=== PATIENT | female | born 1990 | race American Indian/Alaskan Native ===

== ENCOUNTER 2017-06-26 19:52 | Emergency (ER) | payer OTHER ==
--- NOTE | 2017-06-26 20:21 | C.PDOC ---
History Of Present Illness 27 year old female, 5 weeks who is G 3 and P 1, presents to the ED with abdominal cramping and vaginal spotting that started a few days ago. Patient reports she went to see her OBGYN who sent her her for an evaluation. Patient denies nauseam vomit, diarrhea, vaginal bleeding, dysuria, hematuria. Time Seen by Provider: 06/26/17 20:20 Chief Complaint (Nursing): Female Genitourinary History Per: Patient History/Exam Limitations: no limitations Onset/Duration Of Symptoms: Days Current Symptoms Are (Timing): Still Present Quality Of Discomfort: Cramping Associated Symptoms: Urinary Symptoms Alleviating Factors: None Recent travel outside of the [place]: No Additional History Per: Patient Abnormal Vaginal Bleeding: No : 3 Para: 1 Past Medical History Reviewed: Historical Data, Nursing Documentation, Vital Signs Vital Signs: Last Vital Signs Temp 98.8 F 06/26/17 20:13 Pulse 60 06/26/17 20:13 Resp 18 06/26/17 20:13 BP 116/69 06/26/17 20:13 Pulse Ox 99 06/26/17 23:34 - Medical History PMH: No Chronic Diseases Surgical History: No Surg Hx Family History: States: Unknown Family Hx - Social History Hx Alcohol Use: No Hx Substance Use: No Review Of Systems Constitutional: Negative for: Fever, Chills Cardiovascular: Negative for: Chest Pain, Palpitations Respiratory: Negative for: Cough, Shortness of Breath Gastrointestinal: Positive for: Abdominal Pain. Negative for: Nausea, Vomiting Genitourinary: Positive for: Other (vaginal spotting) Musculoskeletal: Negative for: Back Pain Skin: Negative for: Rash Neurological: Negative for: Weakness, Numbness, Headache Physical Exam - Physical Exam Appears: Non-toxic, No Acute Distress Skin: Warm, Dry Head: Normacephalic Eye(s): bilateral: Normal Inspection Nose: No Discharge, No Deformity Oral Mucosa: Moist Neck: Normal ROM, Supple Chest: Symmetrical Cardiovascular: Rhythm Regular, No Murmur Respiratory: No Decreased Breath Sounds, No Rales, No Rhonchi, No Wheezing Gastrointestinal/Abdominal: Soft, No Tenderness, No Guarding, No Rebound, Other (tympanic to percussion, mild suprapubic discomfort) Extremity: Normal ROM, No Pedal Edema, No Calf Tenderness, No Deformity, No Swelling Neurological/Psych: Oriented x3 Gait: Steady ED Course And Treatment - Laboratory Results Result Diagrams: 06/26/17 21:00 06/26/17 21:00 O2 Sat by Pulse Oximetry: 99 (On RA) Pulse Ox Interpretation: Normal Progress Note: Plan: -Labs. -Iv fluids. -UA. -Transvaginal US Reevaluation Time: 23:38 Reassessment Condition: Improved Medical Decision Making Medical Decision Making: Time: 2326 --US transvaginal FINDINGS: Gestation: No intrauterine is visualized. Uterus/cervix: Uterus measures 8.2 x 4.5 x 5.7. Endometrium measures 1.8 CM in thickness. Nabothian cysts. Cervix measures 4.2 CM. No myometrial mass. Ovaries: Right ovary measures 2.5 x 1.3 x 3.2 CM. Left ovary measures 3.2 x 1.7 x 2.3 CM. 1.5 CM left ovarian cyst. No mass. Free fluid: No free fluid. IMPRESSION: 1. No intrauterine is seen 2. No complex adnexal masses. 3. No free fluid. 4. Clinical followup, serial beta-hCG levels, and repeat imaging, if appropriate. Disposition Counseled Patient/Family Regarding: Studies Performed, Diagnosis, Need For Followup - Disposition Referrals: Roe Hernandez MD [Medical Doctor] - Disposition: HOME/ ROUTINE Disposition Time: 20:21 Condition: FAIR Additional Instructions: Please follow up with your cone trucker for repeat BHCG level and possible US Instructions: (ED) Forms: [facility] (Bulgarian) - Clinical Impression Clinical Impression: Chemical - Scribe Statement The provider has reviewed the documentation as recorded by the Scribe Emmanuel Baptiste All medical record entries made by the Scribe were at my direction and personally dictated by me. I have reviewed the chart and agree that the record accurately reflects my personal performance of the history, physical exam, medical decision making, and the department course for this patient. I have also personally directed, reviewed, and agree with the discharge instructions and disposition.
[2017-06-26] MEDS ORDERED: Sodium Chloride 0.9% 1,000 ML IV ONE (20:26)
[2017-06-26 21:06] LABS: BASO # 0.1 K/uL (0.0-0.2); BASO % 0.8 % (0.0-2.0); EOS # 0.1 K/uL (0.0-0.7); EOS % 0.9 % (0.0-4.0); HEMOGLOBIN 11.8 g/dL (11.0-16.0); LYMPH # 2.1 K/uL (1.0-4.3); LYMPH % 27.5 % (20.0-40.0); MEAN CORPUSCULAR HEMOGLOBIN 28.4 pg (27.0-31.0); MEAN CORPUSCULAR HGB CONC 33.4 g/dL (33.0-37.0); MEAN PLATELET VOLUME 9.7 fL (7.2-11.7); MONO # 0.5 K/uL (0.0-0.8); MONO % 6.8 % (0.0-10.0); NRBC % 0.1 % (0.0-2.0); RBC 4.16 Mil/uL (3.80-5.20); RED CELL DISTRIBUTION WIDTH 14.1 % (11.5-14.5); WHITE BLOOD COUNT 7.7 K/uL (4.8-10.8)
[2017-06-26 21:14] LABS: HCG,QUALITATIVE URINE POSITIVE (NEGATIVE)
[2017-06-26 21:15] LABS: SQUAMOUS EPITHIAL 9 /hpf (0-5); URINE BACTERIA OCC (<OCC); URINE BILIRUBIN NEGATIVE (NEGATIVE); URINE BLOOD 3+ (NEGATIVE); URINE CLARITY Clear (Clear); URINE COLOR Yellow (YELLOW); URINE GLUCOSE (UA) NORMAL (Normal); URINE LEUKOCYTE ESTERASE NEG Leu/uL (Negative); URINE NITRATE NEGATIVE (NEGATIVE); URINE PROTEIN NEGATIVE (NEGATIVE)
[2017-06-26 21:20] LABS: ALB/GLOB RATIO 1.2 (1.0-2.1); ALBUMIN 3.7 g/dL (3.5-5.0); CALCIUM 8.4 mg/dl (8.6-10.4); GFR AFRICAN-AMERICAN > 60; GFR NON-AFRICAN AMERICAN > 60
[2017-06-26 21:21] LABS: ALT/SGPT 18 U/L (9-52); AST/SGOT 31 U/L (14-36); BLOOD UREA NITROGEN 14 mg/dL (7-17)
--- NOTE | 2017-06-26 23:27 | US ---
EXAM: US First Trimester, Transabdominal US , Transvaginal CLINICAL HISTORY: 27 years old, female; Signs and symptoms; Lmp or gestational age (in weeks): 12-13-17; Other: Vag bleed; Additional info: 5 weeks pregnat, vag bleed TECHNIQUE: Real-time transabdominal and transvaginal obstetrical ultrasound of the maternal pelvis and a first trimester with image documentation. Transvaginal imaging was used for better evaluation of the fetus and adnexa. COMPARISON: No relevant prior studies available. FINDINGS: Gestation: No intrauterine is visualized. Uterus/cervix: Uterus measures 8.2 x 4.5 x 5.7. Endometrium measures 1.8 CM in thickness. Nabothian cysts. Cervix measures 4.2 CM. No myometrial mass. Ovaries: Right ovary measures 2.5 x 1.3 x 3.2 CM. Left ovary measures 3.2 x 1.7 x 2.3 CM. 1.5 CM left ovarian cyst. No mass. Free fluid: No free fluid. IMPRESSION: 1. No intrauterine is seen. 2. No complex adnexal masses. 3. No free fluid. 4. Clinical followup, serial beta-hCG levels, and repeat imaging, if appropriate.
[2017-06-26 23:58] VITALS: BP 104/66; PULSE 64; RESP 16; TEMP 98.4; O2SAT 100
== END 2017-06-27 | disposition home or self-care (01) ==
LOC: C.ER 19:52
DX: O02.81 Inappropriate change in quantitative human chorionic gonadotropin (hCG) in early pregnancy (principal)
CPT/HCPCS: 76830; 76856; 80053; 81001; 84702; 84703; 85025; 86850; 86860; 86870; 86900; 96360; 99284; J7040

== ENCOUNTER 2017-06-30 14:06 | Emergency (ER) | payer OTHER ==
[2017-06-30 14:46] VITALS: BP 109/68; PULSE 85; RESP 20; TEMP 98.6; O2SAT 98
[2017-06-30 14:49] VITALS: BMI 23.5
--- NOTE | 2017-06-30 15:29 | C.PDOC ---
History Of Present Illness 27 y/o female [id number] is currently 5 weeks and states she had vaginal bleeding and abdominal cramping the past week. Pt reports that she was seen in the hospital on 06/26 with similar symptoms and was discharged with threatened . Pt currently states bleeding has lessened and she is here for evaluation. Currently denies any physical complaints. Time Seen by Provider: 06/30/17 15:07 Chief Complaint (Nursing): Female Genitourinary History Per: Patient History/Exam Limitations: no limitations Onset/Duration Of Symptoms: Days (7) Current Symptoms Are (Timing): Still Present Quality Of Discomfort: Unable To Describe Associated Symptoms: denies: Fever, Chills, Nausea, Vomiting, Diarrhea, Chest Pain, Constipation, Urinary Symptoms Alleviating Factors: None Recent travel outside of the [place]: No Abnormal Vaginal Bleeding: No Past Medical History Reviewed: Historical Data, Nursing Documentation, Vital Signs Vital Signs: Last Vital Signs Temp 98.6 F 06/30/17 14:46 Pulse 85 06/30/17 14:46 Resp 20 06/30/17 14:46 BP 109/68 06/30/17 14:46 Pulse Ox 98 06/30/17 15:51 - Medical History PMH: No Chronic Diseases Surgical History: No Surg Hx Family History: States: Unknown Family Hx - Social History Hx Alcohol Use: No Hx Substance Use: No Review Of Systems Constitutional: Negative for: Fever, Chills Respiratory: Negative for: Shortness of Breath Gastrointestinal: Negative for: Nausea, Vomiting, Abdominal Pain, Diarrhea Genitourinary: Negative for: Dysuria, Hematuria, Vaginal Discharge, Vaginal Bleeding, Pelvic Pain Skin: Negative for: Rash Neurological: Negative for: Weakness, Numbness Physical Exam - Physical Exam Appears: Well, Non-toxic, No Acute Distress, Other (Awake and alert) Skin: Normal Color, Warm, Dry Head: Atraumatic, Normacephalic Eye(s): bilateral: Normal Inspection, PERRL, EOMI Oral Mucosa: Moist Neck: Normal ROM, Supple Chest: Symmetrical, No Tenderness Cardiovascular: Rhythm Regular Respiratory: Normal Breath Sounds, No Decreased Breath Sounds, No Rales, No Rhonchi, No Wheezing Gastrointestinal/Abdominal: Soft, No Tenderness, No Distention, No Guarding, No Rebound Back: No CVA Tenderness, No Vertebral Tenderness Pelvic: No Vaginal Bleeding, No Vaginal Discharge, No Cervical Motion Tenderness Extremity: Normal ROM, No Tenderness, No Swelling Extremity: Bilateral: Normal Color And Temperature, Normal ROM Pulses: Left Radial: Normal, Right Radial: Normal Neurological/Psych: Oriented x3, Normal Speech, Normal Cognition, Other (no focal deficits) Gait: Steady ED Course And Treatment O2 Sat by Pulse Oximetry: 98 (RA) Pulse Ox Interpretation: Normal Medical Decision Making Medical Decision Making: Old records reviewed. Patient was seen 06/26 for threatened . Had Ultrasound performed: IMPRESSION: 1. No intrauterine is seen. 2. No complex adnexal masses. 3. No free fluid. 4. Clinical followup, serial beta-hCG levels, and repeat imaging, if appropriate. Addendum Dictated By: Alaina Carver MD Addendum Dictated Date Time:06/27/17 Addendum Signed by:Alaina Carver MD Addendum signed Date Time: 06/27/17124 Addendum Transcribed By: [facility] Addendum Transcribed Date Time: 06/27/17 Patient had outpatient blood work done this morning and beta was 7; this is indicative of spontaneous . Patient stable for discharge. Disposition - Disposition Referrals: [facility] [Outside] [place] [facility] [Outside] Disposition: HOME/ ROUTINE Disposition Time: 15:24 Condition: GOOD Additional Instructions: Follow up with the OBGYN within 1-2 days without fail. Return if worsened. Instructions: Spontaneous Miscarriage (ED) Forms: [facility] (Luxembourgish) - Clinical Impression Clinical Impression: Spontaneous - PA / CAR DROPPER / Resident Statement MD/DO has reviewed & agrees with the documentation as recorded. - Scribe Statement The provider has reviewed the documentation as recorded by the Scribe Oj Rivero All medical record entries made by the Scribe were at my direction and personally dictated by me. I have reviewed the chart and agree that the record accurately reflects my personal performance of the history, physical exam, medical decision making, and the department course for this patient. I have also personally directed, reviewed, and agree with the discharge instructions and disposition.
== END 2017-06-30 15:41 | disposition home or self-care (01) ==
LOC: C.ER 14:06
DX: O03.9 Complete or unspecified spontaneous abortion without complication (principal); Z3A.01 Less than 8 weeks gestation of pregnancy

== ENCOUNTER 2017-12-09 17:55 | Emergency (ER) | payer OTHER ==
[2017-12-09 18:19] VITALS: BMI 24.4
[2017-12-09 18:23] VITALS: O2SAT 100
[2017-12-09] MEDS ORDERED: Sodium Chloride 0.9% 1,000 ML IV ONE (19:00)
[2017-12-09 19:15] LABS: BASO % 0.7 % (0.0-2.0); EOS # 0.1 K/uL (0.0-0.7); EOS % 0.9 % (0.0-4.0); HEMOGLOBIN 11.9 g/dL (11.0-16.0); LYMPH # 1.8 K/uL (1.0-4.3); LYMPH % 25.6 % (20.0-40.0); MEAN CELL VOLUME 85.5 fL (81.0-99.0); MEAN CORPUSCULAR HEMOGLOBIN 27.9 pg (27.0-31.0); MEAN CORPUSCULAR HGB CONC 32.7 g/dL (33.0-37.0); MEAN PLATELET VOLUME 9.3 fL (7.2-11.7); MONO # 0.5 K/uL (0.0-0.8); MONO % 6.9 % (0.0-10.0); NEUT # 4.6 K/uL (1.8-7.0); NEUT % 65.9 % (50.0-75.0); RBC 4.27 Mil/uL (3.80-5.20); RED CELL DISTRIBUTION WIDTH 14.1 % (11.5-14.5)
[2017-12-09 19:23] LABS: PROTHROMBIN TIME 10.8 SECONDS (9.7-12.2)
[2017-12-09] MEDS ORDERED: Sodium Chloride 0.9% 1,000 ML ONE (19:23)
[2017-12-09 19:29] LABS: ALB/GLOB RATIO 1.6 (1.0-2.1); ALBUMIN 4.2 g/dL (3.5-5.0); ALT/SGPT 23 U/L (9-52); AST/SGOT 21 U/L (14-36); BLOOD UREA NITROGEN 11 mg/dL (7-17); CALCIUM 8.8 mg/dl (8.6-10.4); GFR AFRICAN-AMERICAN > 60; GFR NON-AFRICAN AMERICAN > 60; LIPASE 144 U/L (23-300)
[2017-12-09 19:38] LABS: SQUAMOUS EPITHIAL 31 /hpf (0-5); URINE BACTERIA RARE (<OCC); URINE BILIRUBIN NEGATIVE (NEGATIVE); URINE BLOOD NEGATIVE (NEGATIVE); URINE CLARITY Hazy (Clear); URINE COLOR Yellow (YELLOW); URINE GLUCOSE (UA) NORMAL (Normal); URINE LEUKOCYTE ESTERASE 1+ Leu/uL (Negative); URINE PROTEIN NEGATIVE (NEGATIVE); URINE UROBILINOGEN NORMAL mg/dL (0.2-1.0)
[2017-12-09 19:39] LABS: HCG,QUALITATIVE URINE POSITIVE (NEGATIVE)
--- NOTE | 2017-12-09 20:38 | C.PDOC ---
History Of Present Illness 27 y/o female presents to ED for complaints of abdominal cramping that began few days ago. Patient states pain is worse to the right adnexal region. Denies vaginal bleeding, discharge or any other physical complaints. LNMP: November 24, 2017. Time Seen by Provider: 12/09/17 18:57 Chief Complaint (Nursing): Abdominal Pain History Per: Patient History/Exam Limitations: no limitations Onset/Duration Of Symptoms: Hrs Current Symptoms Are (Timing): Still Present Location Of Pain/Discomfort: Diffuse Radiation Of Pain To:: None Quality Of Discomfort: Cramping Associated Symptoms: denies: Fever, Chills, Nausea, Vomiting, Diarrhea, Urinary Symptoms Exacerbating Factors: None Alleviating Factors: None Last Bowel Movement: Today Recent travel outside of the [place]: No Abnormal Vaginal Bleeding: No Last Menstral Period: 11/24/17 Past Medical History Reviewed: Historical Data, Nursing Documentation, Vital Signs Vital Signs: Last Vital Signs Temp 99.2 F 12/09/17 22:40 Pulse 58 L 12/09/17 22:40 Resp 16 12/09/17 22:40 BP 104/61 12/09/17 22:40 Pulse Ox 100 12/09/17 22:40 - Medical History PMH: No Chronic Diseases Surgical History: No Surg Hx Family History: States: Unknown Family Hx - Social History Hx Alcohol Use: No Hx Substance Use: No - Immunization History Hx Tetanus Toxoid Vaccination: Yes Hx Influenza Vaccination: No Hx Pneumococcal Vaccination: No Review Of Systems Except As Marked, All Systems Reviewed And Found Negative. Gastrointestinal: Positive for: Abdominal Pain Physical Exam - Physical Exam Appears: Well, Non-toxic, No Acute Distress Skin: Normal Color, Warm, Dry Head: Atraumatic, Normacephalic Eye(s): bilateral: Normal Inspection, PERRL, EOMI Oral Mucosa: Moist Neck: Supple Chest: Symmetrical, No Tenderness Cardiovascular: Rhythm Regular Respiratory: Normal Breath Sounds, No Decreased Breath Sounds, No Rales, No Rhonchi, No Wheezing Gastrointestinal/Abdominal: Soft, No Tenderness Pelvic: Adnexal Tenderness (Right ) Extremity: Normal ROM, No Deformity Extremity: Bilateral: Atraumatic, Normal Color And Temperature, Normal ROM Neurological/Psych: Oriented x3, Normal Speech, Other (No focal deficits ) Gait: Steady ED Course And Treatment - Laboratory Results Result Diagrams: 12/09/17 19:12 12/09/17 19:12 O2 Sat by Pulse Oximetry: 100 (RA) Pulse Ox Interpretation: Normal - CT Scan/US US Pelvis(Transabdominal) Other Rad Studies (CT/US): Read By Radiologist, Radiology Report Reviewed CT/US Interpretation: EXAM: US Pelvis Complete, Transabdominal. CLINICAL HISTORY: 27 years old, female; Pain; Pelvic pain; Additional info: Right pelvic pain. TECHNIQUE: Real-time transabdominal pelvic ultrasound (complete) with image documentation. COMPARISON: No relevant prior studies available. FINDINGS: Uterus/cervix: Uterus measures 8.1 cm, with small endometrial fluid, endometrial thickness 9 mm. No myometrial mass. Right ovary: Right ovary contains small simple physiologic follicles. Right ovary is 3 cm. Normal. blood flow. Left ovary: Left ovary contains a small simple physiologic follicles. Left ovary is 5.9 cm containing 2. cysts largest 3.5 cm possibly a hemorrhagic cyst. Normal blood flow. Free fluid: No free fluid. IMPRESSION: No intrauterine . Nonspecific endometrial fluid. Left ovarian cysts. Right adnexal. abnormality is described in the transvaginal port. US Pelvis (Transvaginal) Other Rad Studies (CT/US): Read By Radiologist, Radiology Report Reviewed CT/US Interpretation: EXAM: US Pelvis, Transvaginal. CLINICAL HISTORY: 27 years old, female; Pain; Pelvic pain; Additional info: Right pelvic pain. TECHNIQUE: Real-time transvaginal pelvic ultrasound (complete) with image documentation. Transvaginal. imaging was used for better evaluation of the endometrium and adnexa. COMPARISON: No relevant prior studies available. FINDINGS: Uterus/cervix: The uterus measures 8.1 cm. Endometrial thickness is 9 mm. Cervix closed 3.2 cm. Small free fluid within the endometrial cavity. No myometrial mass. Right ovary: Right ovary contains small simple physiologic follicles. Right ovary measures 3 cm. Right adnexal complex appearing area within a lucent center and echogenic periphery image 79. series #1 measuring 1.4 x 1.5 cm. 1.4 cm x 1.5 cm. No contents. Differential diagnosis includes. corpus luteum cyst or early ectopic . Normal blood flow. Left ovary: Left ovary contains a small simple physiologic follicles. Left ovary measures 5.9 cm with. 2 prominent cysts largest 3.5 cm which appears complex, likely hemorrhagic cyst. Normal blood flow. Free fluid: No free fluid. IMPRESSION: No intrauterine . Small nonspecific endometrial fluid. No mass or torsion. Small. physiologic follicles. Right adnexal complex appearing structure as above differential includes corpus luteum cyst versus. ectopic . Consider further gynecological assessment, and close interval followup serial hCG follow-up and. repeat ultrasound in one or 2 weeks for more definitive assessment. Medical Decision Making Medical Decision Making: Adminsitered Tylenol and IV fluids. Ordered blood work, BBK, urinalysis, and Pelvis/transvaginal US. in er noted to be prengnat. 3 weeks by dates. us shows no iup high concern for ectopic. discussed with accountant auditor dr ruiz. given methotrexate. strict return precautions. abd soft minimal ttp. vitals h/h stable. seen and eval bedside by accountant auditor. clive for dc. Disposition - Disposition Referrals: Skip Orosco MD [Staff Provider] - Disposition: HOME/ ROUTINE Disposition Time: 22:00 Condition: STABLE Additional Instructions: return to er for reassessment on thrusday. return to any er with any worsening symptoms or concerns. Prescriptions: Acetaminophen with Codeine [Tylenol with Codeine #3 Tablet] 1 each PO Q8 PRN # 10 tablet PRN Reason: Pain, Severe (8-10) Instructions: Ectopic Forms: [facility] (Wolof), Work Excuse - Clinical Impression Clinical Impression: Ectopic - Scribe Statement The provider has reviewed the documentation as recorded by the Scribhomero Rivero All medical record entries made by the Scribe were at my direction and personally dictated by me. I have reviewed the chart and agree that the record accurately reflects my personal performance of the history, physical exam, medical decision making, and the department course for this patient. I have also personally directed, reviewed, and agree with the discharge instructions and disposition.
[2017-12-09] MEDS ORDERED: Methotrexate 50 mg/2 ml Inj IM ONE ×3 (22:27→23:00)
--- NOTE | 2017-12-09 22:30 | CP.PCM.CON ---
History of Present Illness - History of Present Illness History of Present Illness: 27 yr lmp 11/24/17 undesired and unplanned preg came with c/o abdominal crampinhg, no pain or vb. pt was surprosed to [facility] about preg. obhcx 1 x sab, 1 x pmh de med onone all nkda psh lprscopy soch de abd soft,non te pelvic exam n sono end fluid, right adenxal mass/cyst r/o ectopic preg Past Patient History - Past Social History Smoking Status: Unknown If Ever Smoked - PSYCHIATRIC Hx Substance Use: No - SURGICAL HISTORY Hx Surgeries: Yes Other/Comment: abdominal surgery for scar tissue - ANESTHESIA Hx Anesthesia: Yes Hx Anesthesia Reactions: No Meds Allergies/Adverse Reactions: Allergies Allergy/AdvReac Type Severity Reaction Status Date / Time No Known Allergies Allergy Verified 06/26/17 20:18 Physical Exam - Constitutional Appears: Well - Head Exam Head Exam: ATRAUMATIC, NORMAL INSPECTION, NORMOCEPHALIC - Eye Exam Eye Exam: EOMI, Normal appearance, PERRL Pupil Exam: NORMAL ACCOMODATION, PERRL - ENT Exam ENT Exam: Mucous Membranes Moist, Normal Exam - Neck Exam Neck exam: Positive for: Normal Inspection - Respiratory Exam Respiratory Exam: Clear to Auscultation Bilateral, NORMAL BREATHING PATTERN - Cardiovascular Exam Cardiovascular Exam: REGULAR RHYTHM - GI/Abdominal Exam GI & Abdominal Exam: Normal Bowel Sounds, Soft. absent: Tenderness - Rectal Exam Rectal Exam: NORMAL INSPECTION - Exam Exam: Circumcision, NORMAL INSPECTION External exam: NORMAL EXTERNAL EXAM Speculum exam: NORMAL SPECULUM EXAM Bimanual exam: NORMAL BIMANUAL EXAM - Extremities Exam Extremities exam: Positive for: normal inspection - Back Exam Back exam: NORMAL INSPECTION - Neurological Exam Neurological exam: Alert, CN II-XII Intact, Normal Gait, Oriented x3, Reflexes Normal - Psychiatric Exam Psychiatric exam: Normal Affect, Normal Mood - Skin Skin Exam: Dry, Intact, Normal Color, Warm Results - Vital Signs Recent Vital Signs: Last Vital Signs Temp 99 F 12/09/17 18:19 Pulse 66 12/09/17 18:19 Resp 20 12/09/17 18:19 BP 109/68 12/09/17 18:19 Pulse Ox 100 12/09/17 20:46 - Labs Result Diagrams: 12/09/17 19:12 12/09/17 19:12 Labs: Laboratory Results - last 24 hr 12/09/17 12/09/17 12/09/17 19:12 19:12 19:12 WBC 7.0 RBC 4.27 Hgb 11.9 Hct 36.5 MCV 85.5 MCH 27.9 MCHC 32.7 L RDW 14.1 Plt Count 230 MPV 9.3 Neut % (Auto) 65.9 Lymph % (Auto) 25.6 [place] % (Auto) 6.9 Eos % (Auto) 0.9 Baso % (Auto) 0.7 Neut # (Auto) 4.6 Lymph # (Auto) 1.8 [place] # (Auto) 0.5 Eos # (Auto) 0.1 Baso # (Auto) 0.0 PT 10.8 INR 1.0 APTT 31 Sodium 139 Potassium 4.0 Chloride 102 Carbon Dioxide 27 Anion Gap 13 BUN 11 Creatinine 0.8 Est GFR ( Amer) > 60 Est GFR (Non-Af Amer) > 60 Random Glucose 66 Calcium 8.8 Total Bilirubin 0.8 AST 21 ALT 23 Alkaline Phosphatase 40 Total Protein 6.9 Albumin 4.2 Globulin 2.7 Albumin/Globulin Ratio 1.6 Lipase 144 Beta HCG, Quant Urine Color Urine Clarity Urine pH Ur Specific Willits Urine Protein Urine Glucose (UA) Urine Ketones Urine Blood Urine Nitrate Urine Bilirubin Urine Urobilinogen Ur Leukocyte Esterase Urine WBC (Auto) Urine RBC (Auto) Ur Squamous Epith Cells Urine Bacteria Urine HCG, Qual Blood Type 12/09/17 12/09/17 12/09/17 19:12 19:20 20:39 WBC RBC Hgb Hct MCV MCH MCHC RDW Plt Count MPV Neut % (Auto) Lymph % (Auto) [place] % (Auto) Eos % (Auto) Baso % (Auto) Neut # (Auto) Lymph # (Auto) [place] # (Auto) Eos # (Auto) Baso # (Auto) PT INR APTT Sodium Potassium Chloride Carbon Dioxide Anion Gap BUN Creatinine Est GFR ( Amer) Est GFR (Non-Af Amer) Random Glucose Calcium Total Bilirubin AST ALT Alkaline Phosphatase Total Protein Albumin Globulin Albumin/Globulin Ratio Lipase Beta HCG, Quant 3936.80 Urine Color Yellow Urine Clarity Hazy Urine pH 6.0 Ur Specific [place] 1.023 Urine Protein Negative Urine Glucose (UA) Normal Urine Ketones Negative Urine Blood Negative Urine Nitrate Negative Urine Bilirubin Negative Urine Urobilinogen Normal Ur Leukocyte Esterase 1+ H Urine WBC (Auto) 11 H Urine RBC (Auto) 2 Ur Squamous Epith Cells 31 H Urine Bacteria Rare Urine HCG, Qual Positive Blood Type A POSITIVE Assessment & Plan - Assessment and Plan (Free Text) Assessment: 27 yr r/o ectopic preg/poss early/oss abnormal preg Plan: plan detaieled discussion done with pateint posibilty for ectopc preg/early preg and bnormal intauterine preg discussed. pt agreed with medical mnagement and understand the possiblty onf intrauterine preh on folow up. no sex motrin prn repeat b hcg on bed rest f/u. - Date & Time Date: 12/09/17 Time: 22:00
[2017-12-09 22:41] VITALS: BP 104/61; PULSE 58; RESP 16; TEMP 99.2
--- NOTE | 2017-12-10 11:57 | US ---
Date of service: 12/09/2017 HISTORY: right pelvic pain LMP 11/24/2017 COMPARISON: Pelvic ultrasound 06/26/2017. TECHNIQUE: Grayscale, color Doppler and spectral evaluation of the pelvis performed transabdominally and transvaginally. FINDINGS: UTERUS: Measures 8.1 x 3.9 x 4.4 cm. Anteverted. Normal in size and appearance. No fibroid or other mass lesion seen. ENDOMETRIUM: Measures 9 mm in diameter. Trace endometrial fluid. CERVIX: No cervical abnormality identified. RIGHT OVARY: Measures 3.0 x 2.0 x 3.3 cm. Small hypoechoic area 0.6 x 0.7 x 0.7 cm in the adnexa with peripheral Doppler flow. Normal flow. LEFT OVARY: Measures 5.9 x 4.5 x 4.9 cm. Cysts measuring 3.5 x 2.9 x 3.8 cm, 2.2 x 2.2 x 1.5 cm and 1.5 x 1.1 x 1.5 cm. Normal flow. FREE FLUID: No significant free fluid noted. OTHER FINDINGS: None. IMPRESSION: No intrauterine gestation. Small hypoechoic area in the right adnexa with peripheral Doppler flow may represent a corpus luteum with ectopic not excluded. Close clinical follow-up with serial pelvic sonography and serum beta HCG levels is recommended.
== END 2017-12-09 23:58 | disposition home or self-care (01) ==
LOC: C.ER 17:55
DX: O00.90 Unspecified ectopic pregnancy without intrauterine pregnancy (principal)
CPT/HCPCS: 76830; 76856; 80053; 81001; 83690; 84702; 84703; 85025; 85610; 85730; 86850; 86870; 86900; 96360; 96372; 99285; J7030; J9250

== ENCOUNTER 2017-12-12 18:28 | Emergency (ER) | payer OTHER ==
[2017-12-12 18:28] VITALS: BMI 24.4
[2017-12-12 18:47] VITALS: TEMP 97.2; O2SAT 100
--- NOTE | 2017-12-12 19:42 | C.PDOC ---
"History Of Present Illness 27 year old female presents to the ED c/o persistent lower abdominal and RLQ pain. Patient reports she was seen in the ED on 12/09/17 and was diagnosed with an ectopic . Patient still complains about persistent pain. Patient denies fever, chills, nausea, vomit, diarrhea, dysuria, hematuria, vaginal bleeding, vaginal discharge. Chief Complaint (Nursing): Medical Clearance History Per: Patient History/Exam Limitations: no limitations Onset/Duration Of Symptoms: Days Current Symptoms Are (Timing): Still Present Reports Recently: Seen In ED (12/09/17) Recent travel outside of the [place]: No Additional History Per: Patient Past Medical History Reviewed: Historical Data, Nursing Documentation, Vital Signs Vital Signs: Last Vital Signs Temp 97.2 F L 12/12/17 18:43 Pulse 62 12/12/17 18:43 Resp 17 12/12/17 18:43 BP 103/62 12/12/17 18:43 Pulse Ox 100 12/12/17 23:28 - Medical History PMH: No Chronic Diseases Surgical History: No Surg Hx Family History: States: Unknown Family Hx - Social History Hx Alcohol Use: Yes Hx Substance Use: No - Immunization History Hx Tetanus Toxoid Vaccination: (unk) Hx Influenza Vaccination: No Hx Pneumococcal Vaccination: No Review Of Systems Constitutional: Negative for: Fever, Chills Cardiovascular: Negative for: Chest Pain, Palpitations Respiratory: Negative for: Cough, Shortness of Breath Gastrointestinal: Positive for: Abdominal Pain. Negative for: Nausea, Vomiting Skin: Negative for: Rash Neurological: Negative for: Weakness, Numbness Physical Exam - Physical Exam Appears: Non-toxic, No Acute Distress Skin: Normal Color, Warm, Dry Head: Atraumatic, Normacephalic Eye(s): bilateral: Normal Inspection Oral Mucosa: Moist Neck: Normal ROM, Supple Chest: Symmetrical Cardiovascular: Rhythm Regular Respiratory: Normal Breath Sounds, No Rales, No Rhonchi, No Wheezing Gastrointestinal/Abdominal: Soft, Tenderness (lower abdomen , RLQ), No Guarding , No Rebound Extremity: Normal ROM, No Tenderness, No Swelling Neurological/Psych: Oriented x3, Normal Speech Gait: Steady ED Course And Treatment - Laboratory Results Result Diagrams: 12/12/17 20:03 12/12/17 20:03 O2 Sat by Pulse Oximetry: 100 (ON RA) Pulse Ox Interpretation: Normal - CT Scan/US Transvaginal US Other Rad Studies (CT/US): Read By Radiologist, Radiology Report Reviewed CT/US Interpretation: EXAM: US Pelvis, Transvaginal. CLINICAL HISTORY: 27 years old, female; Pain; Pelvic pain; Additional info: R/O ectopic . TECHNIQUE: Real-time transvaginal pelvic ultrasound (complete) with image documentation. Transvaginal. imaging was used for better evaluation of the endometrium and adnexa. COMPARISON: PELVIS/TRANSVAG US 2017-12-09 19:56. FINDINGS: Uterus/cervix: Unremarkable. Normal endometrial stripe thickness is 13 mm. There is a small volume of free fluid present within the endometrial cavity. The exam is negative for intrauterine gestational sac. No myometrial mass. The uterus measures 8.8 cm x 3.8 cm x 4.6 cm. Right ovary: Normal blood flow. The RIGHT ovary has unremarkable appearance it measures 3.5 cm x 2 cm x 2.7 cm. Separate from the RIGHT ovary in the RIGHT adnexa is a complex mass. measuring 2 cm x 2.1 cm x 2 cm. (Prior 1.4 cm x 1.5 cm x 1.4 cm). A circumscribed cyst is seen centrally with no internal structures. measuring 7.5 mm x 7 mm x 10 mm (prior 7 mm x 6.5 mm x 5.7 mm). this finding is suspicious for an ectopic . Left ovary: Hemorrhagic cyst 4.4 cm x 3.3 cm x 4.1 cm (prior 2.4 cm x 3.2 cm x 2.7 cm). No mass. Normal blood flow. The LEFT ovary measures 5.3 cm x 6.5 cm x 3.9 cm. Free fluid: There is moderate free fluid present in the cul-de-sac. Review of prior pelvic ultrasound 2017 disclosed similar findings. IMPRESSION: DARRELL BUTLER | Preliminary Radiology Report. CONFIDENTIALITY STATEMENT. This report is intended only for the use of the referring physician , and only in accordance with law, If you received this in error, call . Page 2 of 2. 1. Negative for intrauterine gestational sac. 2. Free fluid is seen in the endometrial cavity. 3. Complex mass RIGHT adnexa suspicious for ectopic . 4. Hemorrhagic cyst LEFT increased in size since prior.. 5. Moderate volume free fluid in the cul-de-sac. 6. Negative uterus and cervical myometrium. Thank you for allowing us to participate in the care of your patient. Dictated and Authenticated by: Shaq Rodriguez MD. 10:10 PM Eastern Time ([place] & [place]) Medical Decision Making Medical Decision Making: Plan: * Labs * Transvaginal US 22:10 - Dr. Turner OB talent acquisition relationship manager, was paged and spoken with for consult 23: 10- DR. Turner OB talent acquisition relationship manager saw the patient and recommended the patient to return to the ED on 12/15 for repeat blood work HcG levels Disposition Discussed With : Dorita Turner Counseled Patient/Family Regarding: Diagnosis - Disposition Referrals: [facility] [Outside] Disposition: HOME/ ROUTINE Disposition Time: 23:25 Condition: STABLE Additional Instructions: TO RETURN ON DECEMBER 15, SATURDAY FOR REPEAT BLOOD HCG LEVEL AND FF UP BY OB-ECONOMIC HISTORY TEACHER. TO RETURN IF WITH SEVERE PAIN. Instructions: Ectopic (DC) Forms: [employer] (Turkish) - POA Present On Arrival: None - Clinical Impression Clinical Impression: Abdominal pain affecting , Ectopic - Scribe Statement The provider has reviewed the documentation as recorded by the Scribe Emmanuel Baptiste"
[2017-12-12 20:12] LABS: BASO % 0.5 % (0.0-2.0); EOS # 0.1 K/uL (0.0-0.7); EOS % 1.1 % (0.0-4.0); HEMOGLOBIN 11.6 g/dL (11.0-16.0); LYMPH # 2.3 K/uL (1.0-4.3); LYMPH % 30.7 % (20.0-40.0); MEAN CELL VOLUME 84.9 fL (81.0-99.0); MEAN CORPUSCULAR HEMOGLOBIN 28.1 pg (27.0-31.0); MEAN CORPUSCULAR HGB CONC 33.1 g/dL (33.0-37.0); MEAN PLATELET VOLUME 9.1 fL (7.2-11.7); MONO # 0.5 K/uL (0.0-0.8); NEUT # 4.5 K/uL (1.8-7.0); NEUT % 60.7 % (50.0-75.0); RBC 4.11 Mil/uL (3.80-5.20); RED CELL DISTRIBUTION WIDTH 13.7 % (11.5-14.5); WHITE BLOOD COUNT 7.4 K/uL (4.8-10.8)
[2017-12-12 20:25] LABS: PROTHROMBIN TIME 10.8 SECONDS (9.7-12.2)
[2017-12-12 20:42] LABS: ALB/GLOB RATIO 1.4 (1.0-2.1); ALBUMIN 3.6 g/dL (3.5-5.0); ALT/SGPT 29 U/L (9-52); AST/SGOT 22 U/L (14-36); BLOOD UREA NITROGEN 14 mg/dL (7-17); CALCIUM 8.5 mg/dl (8.6-10.4); GFR AFRICAN-AMERICAN > 60; GFR NON-AFRICAN AMERICAN > 60
[2017-12-12] MEDS ORDERED: Sodium Chloride 0.9% 1,000 ML IV ONE (22:32)
[2017-12-12] MEDS ORDERED: Sodium Chloride 0.9% 1,000 ML ONE (22:43)
[2017-12-12 23:59] VITALS: BP 110/70; PULSE 94; RESP 20
--- NOTE | 2017-12-13 07:13 | CP.PCM.CON ---
History of Present Illness - History of Present Illness History of Present Illness: `Late Entry Pt is a 27yo LMP 11/24 presents to ED for f/u QHCG. Pt was seen here on where qhcg was found to be 3936 with us showing no IUP. She was treated for ectopic preg w/ MTX. She presents today for repeat qhcg. She states pain has not changed since 12/09 and is intermittent and of same intensity as before. She has not been sexually active and understands she is not to be until resolution of preg. She denies vaginal bleeding, n/v. 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 absent: Diarrhea, Nausea, Vomiting - Genitourinary Genitourinary: absent: Difficulty Urinating - Neurological Neurological: absent: Syncope, Vertigo, Weakness - Hematologic/Lymphatic Hematologic: absent: Easy Bleeding Past Patient History - Past Social History Smoking Status: Never Smoked - PSYCHIATRIC Hx Substance Use: No - SURGICAL HISTORY Hx Surgeries: Yes Other/Comment: abdominal surgery for scar tissue - ANESTHESIA Hx Anesthesia: Yes Hx Anesthesia Reactions: No Meds Allergies/Adverse Reactions: Allergies Allergy/AdvReac Type Severity Reaction Status Date / Time No Known Allergies Allergy Verified 12/12/17 18:47 Physical Exam - Constitutional Appears: Well, No Acute Distress - Head Exam Head Exam: ATRAUMATIC, NORMOCEPHALIC - Respiratory Exam Respiratory Exam: NORMAL BREATHING PATTERN - Cardiovascular Exam Cardiovascular Exam: REGULAR RHYTHM - GI/Abdominal Exam GI & Abdominal Exam: Normal Bowel Sounds. absent: Distended, Guarding - Exam External exam: NORMAL EXTERNAL EXAM Speculum exam: absent: Vaginal Bleeding (no blood on glove) - Extremities Exam Extremities exam: Positive for: normal inspection - Neurological Exam Neurological exam: Oriented x3 - Psychiatric Exam Psychiatric exam: Normal Affect - Skin Skin Exam: Normal Color Results - Vital Signs Recent Vital Signs: Last Vital Signs Temp 97.2 F L 12/12/17 18:43 Pulse 94 H 12/12/17 23:58 Resp 20 12/12/17 23:58 BP 110/70 12/12/17 23:58 Pulse Ox 100 12/12/17 23:58 - Labs Result Diagrams: 12/12/17 20:03 12/12/17 20:03 Labs: Laboratory Results - last 24 hr 12/12/17 12/12/17 12/12/17 20:03 20:03 20:03 WBC 7.4 RBC 4.11 Hgb 11.6 Hct 34.9 MCV 84.9 MCH 28.1 MCHC 33.1 RDW 13.7 Plt Count 209 MPV 9.1 Neut % (Auto) 60.7 Lymph % (Auto) 30.7 [place] % (Auto) 7.0 Eos % (Auto) 1.1 Baso % (Auto) 0.5 Neut # (Auto) 4.5 Lymph # (Auto) 2.3 [place] # (Auto) 0.5 Eos # (Auto) 0.1 Baso # (Auto) 0.0 PT 10.8 INR 1.0 APTT 31 Sodium 136 Potassium 3.9 Chloride 102 Carbon Dioxide 27 Anion Gap 11 BUN 14 Creatinine 0.7 Est GFR ( Amer) > 60 Est GFR (Non-Af Amer) > 60 Random Glucose 67 Calcium 8.5 L Total Bilirubin 0.6 AST 22 ALT 29 Alkaline Phosphatase 36 L Total Protein 6.3 Albumin 3.6 Globulin 2.7 Albumin/Globulin Ratio 1.4 Beta HCG, Quant 5277.20 Blood Type Antibody Screen Antibody Identification 12/12/17 20:03 WBC RBC Hgb Hct MCV MCH MCHC RDW Plt Count MPV Neut % (Auto) Lymph % (Auto) [place] % (Auto) Eos % (Auto) Baso % (Auto) Neut # (Auto) Lymph # (Auto) [place] # (Auto) Eos # (Auto) Baso # (Auto) PT INR APTT Sodium Potassium Chloride Carbon Dioxide Anion Gap BUN Creatinine Est GFR ( Amer) Est GFR (Non-Af Amer) Random Glucose Calcium Total Bilirubin AST ALT Alkaline Phosphatase Total Protein Albumin Globulin Albumin/Globulin Ratio Beta HCG, Quant Blood Type A POSITIVE Antibody Screen Positive Antibody Identification See Comments - Imaging and Cardiology US - abdomen Status: Image reviewed by me, Report reviewed by me Assessment & Plan - Assessment and Plan (Free Text) Assessment: Impression: Ectopic s/p MTX Day 4 Hemodynamically Normal- stable vitals, hgb stable since 12/09 Increased qhcg most likely 2ndary to MTX Repeat US today with similar findings as 12/09 Plan: Return to ED on Day 7, SaturdayDecember 15 Return to ED if pain intensifies or any concerns Pelvic rest. Pt advised that on f/u visit there should be a 15% decrease or more in HCG from today. Plan of care also d/w Dr. Richard.
--- NOTE | 2017-12-13 09:49 | US ---
Date of service: 12/12/2017 HISTORY: Ectopic suspected. Beta HCG results: 5277.20. Increase from the prior beta HCG December 09, 2017 3936.80 COMPARISON: 12/09/2017. TECHNIQUE: Transvaginal only. Real -time technique with 2D, duplex and color Doppler FINDINGS: UTERUS: Measures 3.8 x 4.7 x 8.8 cm. Normal in size and appearance. No fibroid or other mass lesion seen. ENDOMETRIUM: Measures 9.3 mm in diameter. Trace fluid identified in the endometrial canal. CERVIX: No cervical abnormality identified. RIGHT OVARY: Measures 2 x 2.7 x 3.6 cm. No solid mass. Normal flow. LEFT OVARY: Measures 3.9 x 5.4 x 6.6 cm. No solid mass. Normal flow. Complex cysts (2). The larger measures 3.3 x 4.3 cm. The smaller complex likely hemorrhagic cyst 1.6 x 2.2 cm. FREE FLUID: Low volume fluid identified in the cul-de-sac. OTHER FINDINGS: Complex mass adjacent to the right adnexa 2.0 x 2.1 x 2.6 cm. Within this is a small cystic cavity 11 mm. Fluid identified adjacent to this. The periphery of the mass is hypervascular. This is increased in size compared to the prior study 1.4 x 1.5 x 1.5 cm. IMPRESSION: Findings consistent with right adnexal ectopic gestation measuring 2 x 2.1 x 2 cm. This is increased in size from the prior study. Additional benign and/or incidental findings described above. Concordant results (preliminary interpretation) provided by [employer]. Procedure Completed: 21:12 Preliminary ([facility]) Report: Dictated and Authenticated: 22:10 Final Interpretation: 09:47 December 13, 2017.
== END 2017-12-13 00:01 | disposition home or self-care (01) ==
LOC: C.ER 18:28
DX: O00.90 Unspecified ectopic pregnancy without intrauterine pregnancy (principal)
CPT/HCPCS: 76830; 80053; 84702; 85025; 85610; 85730; 86850; 86870; 86900; 96360; 99284; J7030

== ENCOUNTER 2017-12-16 11:00 | Emergency (ER) | payer OTHER ==
[2017-12-16 11:00] VITALS: BMI 24.4
[2017-12-16 11:16] VITALS: BP 106/68; PULSE 58; RESP 18; TEMP 98.5; O2SAT 98
--- NOTE | 2017-12-16 11:42 | C.PDOC ---
History Of Present Illness 27-year-old presents to the ED for repeat beta-HCG. Patient was seen here on 12/09/17 and treated for ectopic with methotrexate. She reports taking the medication as prescribed. Patient otherwise denies any persistent pain or bleeding. LMP was 11/24/17. Time Seen by Provider: 12/16/17 11:29 Chief Complaint (Nursing): Medical Clearance History Per: Patient History/Exam Limitations: no limitations Onset/Duration Of Symptoms: Days Current Symptoms Are (Timing): Gone Past Medical History Reviewed: Historical Data, Nursing Documentation, Vital Signs Vital Signs: Last Vital Signs Temp 98.5 F 12/16/17 11:14 Pulse 58 L 12/16/17 11:14 Resp 18 12/16/17 11:14 BP 106/68 12/16/17 11:14 Pulse Ox 98 12/16/17 13:03 - Medical History PMH: No Chronic Diseases Other Surgeries: Abdominal surgery for scar tissue Family History: States: Unknown Family Hx - Social History Hx Tobacco Use: No Hx Alcohol Use: Yes Hx Substance Use: No - Immunization History Hx Tetanus Toxoid Vaccination: (unk) Hx Influenza Vaccination: No Hx Pneumococcal Vaccination: No Review Of Systems Constitutional: Negative for: Fever Genitourinary: Negative for: Vaginal Bleeding, Pelvic Pain Physical Exam - Physical Exam Appears: Well, Non-toxic, No Acute Distress Skin: Warm, Dry, No Rash Head: Atraumatic, Normacephalic Eye(s): bilateral: Normal Inspection Nose: Normal Oral Mucosa: Moist Chest: Symmetrical Respiratory: No Accessory Muscle Use, Other (Speaking in complete sentences, no respiratory distress) Gastrointestinal/Abdominal: Soft, No Tenderness Neurological/Psych: Oriented x3, Normal Speech Gait: Steady ED Course And Treatment O2 Sat by Pulse Oximetry: 98 (RA) Pulse Ox Interpretation: Normal Medical Decision Making Medical Decision Making: Initial Plan: * Repeat beta quant ordered * Ultrasound The patient refuses ultrasound, just wants blood checked [place] [facility] [place] 3936, 12/12: 5277 Progress, Reassess and Dispo: [place] [facility] [place]30, more than 15% decrease from last visit. Patient remained well and in no distress. Patient counseled regarding findings and advised to return to the ER or follow up with INPUT OUTPUT CLERK in 1 week for repeat beta. Disposition Counseled Patient/Family Regarding: Diagnosis, Need For Followup - Disposition [facility]] Disposition: HOME/ ROUTINE Disposition Time: 12:37 Condition: STABLE Additional Instructions: Today [place] [facility] [place]30, you will need to follow up with family service counselor or return weekly to repeat the level until 0. Instructions: Ectopic (DC) Forms: [employer] (Tajik) - POA Present On Arrival: None - Clinical Impression Clinical Impression: Aborted ectopic - PA / MANAGER HELPDESK / Resident Statement MD/DO has reviewed & agrees with the documentation as recorded. - Scribe Statement The provider has reviewed the documentation as recorded by the Scribe (Lou Johnson) All medical record entries made by the Scribe were at my direction and personally dictated by me. I have reviewed the chart and agree that the record accurately reflects my personal performance of the history, physical exam, medical decision making, and the department course for this patient. I have also personally directed, reviewed, and agree with the discharge instructions and disposition.
== END 2017-12-16 12:37 | disposition home or self-care (01) ==
LOC: C.ER 11:00
DX: O00.90 Unspecified ectopic pregnancy without intrauterine pregnancy (principal)

== ENCOUNTER 2018-01-08 01:13 | Emergency (ER) | payer OTHER ==
[2018-01-08 01:13] VITALS: BMI 24.4
--- NOTE | 2018-01-08 01:27 | C.PDOC ---
History Of Present Illness Patient presents to the ER with a complaint of RLQ pain, associated with nausea and vomiting. Patient has a Hx of ectopic on 12/12/17, she was started on methotrexate and reports completing all of her medications. On patient's hcg was 5277, on 12/16/17 it was 3930. Denies fever or chills. Time Seen by Provider: 01/08/18 01:27 Chief Complaint (Nursing): Abdominal Pain History Per: Patient History/Exam Limitations: no limitations Onset/Duration Of Symptoms: Days Current Symptoms Are (Timing): Still Present Severity: Moderate Pain Scale Rating Of: 4 Location Of Pain/Discomfort: RLQ Quality Of Discomfort: Unable To Describe Associated Symptoms: Nausea, Vomiting. denies: Fever, Chills Exacerbating Factors: None Alleviating Factors: None Recent travel outside of the [place]: No Abnormal Vaginal Bleeding: No Past Medical History Reviewed: Historical Data, Nursing Documentation, Vital Signs Vital Signs: Last Vital Signs Temp 97.9 F 01/08/18 05:11 Pulse 54 L 01/08/18 05:11 Resp 14 01/08/18 05:11 BP 90/55 L 01/08/18 05:11 Pulse Ox 100 01/08/18 06:15 Family History: States: Unknown Family Hx - Social History Hx Tobacco Use: No Hx Alcohol Use: Yes Hx Substance Use: No - Immunization History Hx Tetanus Toxoid Vaccination: (unk) Hx Influenza Vaccination: No Hx Pneumococcal Vaccination: No Review Of Systems Constitutional: Negative for: Fever, Chills Cardiovascular: Negative for: Chest Pain, Palpitations Respiratory: Negative for: Cough, Shortness of Breath Gastrointestinal: Positive for: Nausea, Vomiting, Abdominal Pain Physical Exam - Physical Exam Appears: Non-toxic Skin: Warm, Dry Head: Normacephalic Oral Mucosa: Moist Chest: Symmetrical, No Tenderness Cardiovascular: Rhythm Regular Respiratory: No Rales, No Rhonchi, No Wheezing Gastrointestinal/Abdominal: Soft, Tenderness (RLQ), No Guarding, No Rebound Neurological/Psych: Oriented x3 ED Course And Treatment - Laboratory Results Result Diagrams: 01/08/18 01:51 01/08/18 01:51 O2 Sat by Pulse Oximetry: 100 (Room air) Pulse Ox Interpretation: Normal Progress Note: Blood work and urinalysis ordered. Tylenol, zofran, and IV fluids administered. spoke with dr pascal-hand launderer- continue to follow. HCG trending down - now about 430 down from 5277 Reevaluation Time: 06:13 Reassessment Condition: Improved Disposition Counseled Patient/Family Regarding: Studies Performed, Diagnosis, Need For Followup, Rx Given - Disposition Referrals: at [facility] [Outside] [facility] [Outside] Disposition: HOME/ ROUTINE Disposition Time: 01:27 Condition: FAIR Additional Instructions: Please return if symptoms recur Prescriptions: traMADol [Ultram] 50 mg PO QID PRN #15 tab PRN Reason: Pain, Severe (8-10) Instructions: Ectopic (DC) Forms: [employer] (Lithuanian) - Clinical Impression Clinical Impression: Abdominal pain, Ectopic - Scribe Statement The provider has reviewed the documentation as recorded by the Scribhomero Garcia All medical record entries made by the Scribe were at my direction and personally dictated by me. I have reviewed the chart and agree that the record accurately reflects my personal performance of the history, physical exam, medical decision making, and the department course for this patient. I have also personally directed, reviewed, and agree with the discharge instructions and disposition.
[2018-01-08] MEDS ORDERED: Sodium Chloride 0.9% 1,000 ML IV ONE (01:28)
[2018-01-08] MEDS ORDERED: Sodium Chloride 0.9% 1,000 ML ONE (01:39)
[2018-01-08 01:54] LABS: BASO # 0.1 K/uL (0.0-0.2); BASO % 0.8 % (0.0-2.0); EOS % 0.6 % (0.0-4.0); HEMOGLOBIN 12.8 g/dL (11.0-16.0); LYMPH # 2.8 K/uL (1.0-4.3); LYMPH % 34.3 % (20.0-40.0); MEAN CELL VOLUME 86.1 fL (81.0-99.0); MEAN CORPUSCULAR HEMOGLOBIN 28.2 pg (27.0-31.0); MEAN CORPUSCULAR HGB CONC 32.7 g/dL (33.0-37.0); MEAN PLATELET VOLUME 10.1 fL (7.2-11.7); MONO # 0.5 K/uL (0.0-0.8); MONO % 5.7 % (0.0-10.0); NEUT # 4.8 K/uL (1.8-7.0); NEUT % 58.6 % (50.0-75.0); RBC 4.53 Mil/uL (3.80-5.20); RED CELL DISTRIBUTION WIDTH 14.2 % (11.5-14.5); WHITE BLOOD COUNT 8.1 K/uL (4.8-10.8)
[2018-01-08 02:06] LABS: PROTHROMBIN TIME 10.9 SECONDS (9.7-12.2)
[2018-01-08 02:13] LABS: ALB/GLOB RATIO 1.5 (1.0-2.1); ALT/SGPT 26 U/L (9-52); AST/SGOT 23 U/L (14-36); BLOOD UREA NITROGEN 14 mg/dL (7-17); GFR AFRICAN-AMERICAN > 60; GFR NON-AFRICAN AMERICAN > 60
[2018-01-08 05:11] VITALS: RESP 14
[2018-01-08 06:39] VITALS: BP 125/83; PULSE 69; TEMP 98.6; O2SAT 98
--- NOTE | 2018-01-08 08:24 | US ---
Date of service: 01/08/2018 HISTORY: ectopic on mtx, abd pain, hcg 430 COMPARISON: None available. TECHNIQUE: Transabdominal and transvaginal FINDINGS: UTERUS: Measures 8.6 x 3.7 x 4.5 cm. Normal in size and appearance. No fibroid or other mass lesion seen. ENDOMETRIUM: Measures 6 mm in diameter. No intrauterine gestational sac CERVIX: No cervical abnormality identified. RIGHT OVARY: Measures 2.9 x 3.2 x 3.0 cm. 3.3 x 2.2 x 3.8 Normal flow. LEFT OVARY: Measures 3.3 x 2.2 x 3.8 cm. No solid mass. Normal flow. Simple cyst, 1.1 x 1.2 x 1.7 cm. Complex cyst with low-level internal echoes, 1.4 x 1.6 x 1.6 cm. FREE FLUID: Small amount of complex fluid in the cul-de-sac with low-level internal echoes. This may be seen in the presence of acute or old blood or prior infection. OTHER FINDINGS: Adjacent to the right ovary there is a complex thick walled cystic mass measuring 1.8 x 2.2 x 2.3 cm. This mass does not demonstrate characteristic peripheral hypervascularity but is vascular. The possibility of ectopic gestation must be considered in the presence of elevated beta HCG. Please correlate. IMPRESSION: Complex right adnexal mass adjacent ovary, uncertain significance. Rule out ectopic gestation. Correlate with serial beta HCG evaluation. Small simple cyst and small complex cyst of left ovary. No intrauterine gestational sac identified. The preliminary findings for this examination were reported by [employer] at 5:55 a.m. on 01/08/2018.. There is concurrence of this report with the preliminary findings.
== END 2018-01-08 06:38 | disposition home or self-care (01) ==
LOC: C.ER 01:13
DX: O00.90 Unspecified ectopic pregnancy without intrauterine pregnancy (principal); R10.31 Right lower quadrant pain
CPT/HCPCS: 76830; 76856; 80053; 84702; 85025; 85610; 85730; 86850; 86870; 86900; 96361; 96374; 99285; J2405; J7030

== ENCOUNTER 2018-01-27 16:45 | Emergency (ER) | payer OTHER ==
[2018-01-27 16:46] VITALS: BMI 24.4
[2018-01-27 17:12] VITALS: BP 99/64; RESP 18
[2018-01-27 18:07] LABS: SQUAMOUS EPITHIAL 6 /hpf (0-5); URINE AMORPHOUS SEDIMENT RARE /ul (<OCC); URINE BACTERIA FEW (<OCC); URINE BILIRUBIN NEGATIVE (NEGATIVE); URINE BLOOD NEGATIVE (NEGATIVE); URINE CLARITY Hazy (Clear); URINE COLOR Yellow (YELLOW); URINE GLUCOSE (UA) NORMAL (Normal); URINE LEUKOCYTE ESTERASE TRACE Leu/uL (Negative); URINE PROTEIN NEGATIVE (NEGATIVE)
--- NOTE | 2018-01-27 18:45 | C.PDOC ---
History Of Present Illness 27 y/o female , presents to ED asking if she is . Pt note her LMP , so she is 3 days day for her menses this month. Notes she is regular on her menses usually. This morning she took a test and it was positive. She also notes she was diagnosed with ectopic on 12/09/17 , given methotrexate and had serial decrease Beta HCGs, 12/16 (3930), 01/08 (423). Patient denies vaginal bleeding, abdominal pain, vaginal d/c, nausea, vomiting, back pain or any other complaints at this time. Time Seen by Provider: 01/27/18 17:22 Chief Complaint (Nursing): Female Genitourinary History Per: Patient History/Exam Limitations: no limitations Onset/Duration Of Symptoms: Days Current Symptoms Are (Timing): Still Present Past Medical History Reviewed: Historical Data, Nursing Documentation, Vital Signs Vital Signs: Last Vital Signs Temp 99.4 F 01/27/18 20:19 Pulse 52 L 01/27/18 20:19 Resp 18 01/27/18 20:19 BP 99/64 L 01/27/18 20:19 Pulse Ox 98 01/28/18 14:38 - Medical History PMH: No Chronic Diseases Surgical History: No Surg Hx Family History: States: No Known Family Hx - Social History Hx Tobacco Use: No Hx Alcohol Use: Yes Hx Substance Use: No - Immunization History Hx Tetanus Toxoid Vaccination: (unk) Hx Influenza Vaccination: No Hx Pneumococcal Vaccination: No Review Of Systems Constitutional: Negative for: Fever, Chills Gastrointestinal: Negative for: Abdominal Pain, Diarrhea Genitourinary: Negative for: Dysuria, Vaginal Discharge, Vaginal Bleeding Skin: Negative for: Rash Physical Exam - Physical Exam Appears: Non-toxic, No Acute Distress Skin: Warm, Dry, No Rash Head: Atraumatic, Normacephalic Eye(s): bilateral: Normal Inspection, EOMI Nose: Normal Oral Mucosa: Moist Neck: Supple Chest: Symmetrical Cardiovascular: Rhythm Regular Respiratory: Normal Breath Sounds, No Rales, No Rhonchi, No Wheezing Gastrointestinal/Abdominal: Soft, No Tenderness, No Guarding, No Rebound Back: No CVA Tenderness Extremity: Normal ROM Neurological/Psych: Oriented x3, Normal Speech, Normal Cognition ED Course And Treatment O2 Sat by Pulse Oximetry: 98 (RA) Pulse Ox Interpretation: Normal - CT Scan/US Pelvis US Other Rad Studies (CT/US): Interpreted By Me, Read By Radiologist, Radiology Report Reviewed CT/US Interpretation: EXAM: US Pelvis Complete, Transabdominal. US Pelvis, Transvaginal. CLINICAL HISTORY: 27 years old, female; Signs and symptoms; Other : R/O ectopic. TECHNIQUE: Real-time transabdominal and transvaginal pelvic ultrasound (complete) with image. documentation. Transvaginal imaging was used for better evaluation of the endometrium and. adnexa. COMPARISON: PELVIS/ TRANSVAG US 01/08/2018 4:16 AM. FINDINGS: Uterus/cervix: Nabothian cysts in the cervix. No myometrial mass. Endometrial stripe measures 1.5 cm in thickness. Right ovary: Probable 2.5 cm hemorrhagic cyst in the right ovary. Degenerative follicle within the right ovary versus degenerating ectopic adjacent to the. right ovary measuring 2 cm. Normal blood flow. Left ovary: Unremarkable. No mass. Normal blood flow. Free fluid: Trace simple free fluid in the pelvis. Other findings: Quantitative beta hCG of 67. No intrauterine gestation is identified. IMPRESSION: 1. Quantitative beta hCG of 67. By report this is declining from a known and methotrexate treated. ectopic in early December. 2. No intrauterine gestation is identified. This is an expected finding given patient's recent history. 3. Probable 2.5 cm hemorrhagic cyst in the right ovary. 4. Degenerative follicle within the right ovary versus degenerating ectopic adjacent to the. right ovary measuring 2 cm. No acute findings Progress Note: Beta HCG continues to trend down. US shows degenerating ectopic. Pt was instructed to follow up with [facility] [employer] in 2-3 days. Case discussed with Dr Monique, agreed upon plan and discharge. Disposition - Disposition Disposition: HOME/ ROUTINE Disposition Time: 20:44 Condition: STABLE Additional Instructions: Follow up with your [facility] in 3-5 days for re-evaluation. Show them your results for todays work up. Your Beta HCG is 66 today. 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 - Scribe Statement The provider has reviewed the documentation as recorded by the Scribe Sherorn Arreguin All medical record entries made by the Scribe were at my direction and personally dictated by me. I have reviewed the chart and agree that the record accurately reflects my personal performance of the history, physical exam, medical decision making, and the department course for this patient. I have also personally directed, reviewed, and agree with the discharge instructions and disposition.
[2018-01-27 20:19] VITALS: PULSE 52; TEMP 99.4
[2018-01-27 20:45] VITALS: O2SAT 98
--- NOTE | 2018-01-28 12:03 | US ---
Date of service: 01/27/2018 HISTORY: r/o ectopic COMPARISON: None available. TECHNIQUE: Transabdominal and transvaginal FINDINGS: UTERUS: Measures 8.1 x 4.1 x 5.2 cm. Normal in size and appearance. No fibroid or other mass lesion seen. ENDOMETRIUM: Measures 15 mm in diameter. No intrauterine gestation identified. CERVIX: No cervical abnormality identified. RIGHT OVARY: Measures cm. Complex right ovarian cyst, 2.8 x 2.4 x 2.7 cm. Internal septation and low-level echoes. Possible resolving hemorrhagic cyst. There is some peripheral hypervascularity suggesting possible corpus luteum cyst. Normal flow. There is a parovarian complex mass, 1.8 x 1.8 x 2.0 cm. No peripheral hypervascularity. Uncertain significance. Cannot rule out ectopic gestation. Given history of methotrexate treatment, possible degenerating ectopic . Correlate with serial beta HCG and transvaginal pelvic ultrasound examination. LEFT OVARY: Measures 4.0 x 2.2 x 3.7 cm. Cm. No solid mass. Normal flow. FREE FLUID: Trace fluid in cul-de-sac OTHER FINDINGS: None. IMPRESSION: Complex right ovarian cyst, 2.8 cm. Likely hemorrhagic cyst. Complex right paraovarian mass, 2.0 cm. Uncertain significance. Followup advised as above. The preliminary findings for this examination were reported by [facility] at 8:47 p.m. on 01/27/2018. There is concurrence of this report with the preliminary findings.
== END 2018-01-27 21:02 | disposition home or self-care (01) ==
LOC: C.ER 16:45
DX: O00.90 Unspecified ectopic pregnancy without intrauterine pregnancy (principal)

== ENCOUNTER 2018-02-06 15:46 | Emergency (ER) | payer OTHER ==
[2018-02-06 15:47] VITALS: BMI 24.4
[2018-02-06 15:59] VITALS: BP 118/72; PULSE 55; RESP 18; TEMP 98.2; O2SAT 100
--- NOTE | 2018-02-06 16:14 | C.PDOC ---
History Of Present Illness 27 y/o female , presents to ED repeat beta quant. Pt reports, LMP 12/25, on was diagnosed with ectopic , given methotrexate and had serial decrease Beta HCGs, from 12/09/17 (3936) to 01/27/18 (66). Patient denies fever, chills, headache, dizziness, CP, SOB, dyspnea, palpitation, abd. pain, N/V, back pain, denies vaginal bleeding, or any other complaints at this time. Time Seen by Provider: 02/06/18 16:05 Chief Complaint (Nursing): Medical Clearance History Per: Patient Past Medical History Reviewed: Historical Data, Nursing Documentation, Vital Signs Vital Signs: Last Vital Signs Temp 98.2 F 02/06/18 15:57 Pulse 55 L 02/06/18 15:57 Resp 18 02/06/18 15:57 BP 118/72 02/06/18 15:57 Pulse Ox 100 02/06/18 17:42 - Medical History PMH: No Chronic Diseases Family History: States: Unknown Family Hx - Social History Hx Tobacco Use: No Hx Alcohol Use: Yes Hx Substance Use: No - Immunization History Hx Tetanus Toxoid Vaccination: (unk) Hx Influenza Vaccination: No Hx Pneumococcal Vaccination: No Review Of Systems Except As Marked, All Systems Reviewed And Found Negative. Constitutional: Negative for: Fever, Chills ENT: Negative for: Throat Pain Cardiovascular: Negative for: Chest Pain, Palpitations, Light Headedness Respiratory: Negative for: Cough, Shortness of Breath, Wheezing Gastrointestinal: Negative for: Nausea, Vomiting, Abdominal Pain, Diarrhea Genitourinary: Negative for: Dysuria, Incontinence Musculoskeletal: Negative for: Neck Pain, Back Pain Skin: Negative for: Rash Neurological: Negative for: Altered Mental Status, Headache, Dizziness Physical Exam - Physical Exam Appears: Well, No Acute Distress Skin: Normal Color, Warm, Dry Head: Normacephalic Eye(s): bilateral: PERRL Nose: No Flaring Oral Mucosa: Moist Neck: Trachea Midline, Supple Cardiovascular: Rhythm Regular, No Murmur, No JVD Respiratory: No Decreased Breath Sounds, No Accessory Muscle Use, No Stridor, No Wheezing Gastrointestinal/Abdominal: Soft, No Tenderness, No Distention, No Guarding Back: No CVA Tenderness Extremity: Normal ROM, No Tenderness, No Pedal Edema, No Deformity, No Swelling Neurological/Psych: Oriented x3, Normal Speech ED Course And Treatment O2 Sat by Pulse Oximetry: 100 Pulse Ox Interpretation: Normal - CT Scan/US Transvaginal US from 01/27/18 Other Rad Studies (CT/US): Radiology Report Reviewed CT/US Interpretation: Creator : Ramos Carter MD. Dictator : Ramos Carter MD. Senior Advocate : Relocation Services Specialist : Ramos Carter MD. Approver2 : Report Date : 01/28/2018 12:01:45. My Comment : . Date of service: 01/27/2018. HISTORY: r/o ectopic. COMPARISON: None available. TECHNIQUE: Transabdominal and transvaginal. FINDINGS: UTERUS: Measures 8.1 x 4.1 x 5.2 cm. Normal in size and appearance. No fibroid or other mass lesion seen. ENDOMETRIUM: Measures 15 mm in diameter. No intrauterine gestation identified. CERVIX: No cervical abnormality identified. RIGHT OVARY: Measures cm. Complex right ovarian cyst, 2.8 x 2.4 x 2.7 cm. Internal septation and low-level echoes. Possible resolving hemorrhagic cyst. There is some peripheral hypervascularity suggesting possible corpus luteum cyst. Normal flow. There is a parovarian complex mass, 1.8 x 1.8 x 2.0 cm. No peripheral hypervascularity. Uncertain significance. Cannot rule out ectopic gestation. Given history of methotrexate treatment, possible degenerating ectopic . Correlate with serial beta HCG and transvaginal pelvic ultrasound examination. LEFT OVARY: Measures 4.0 x 2.2 x 3.7 cm. Cm. No solid mass. Normal flow. FREE FLUID: Trace fluid in cul-de-sac. OTHER FINDINGS: None. IMPRESSION: Complex right ovarian cyst, 2.8 cm. Likely hemorrhagic cyst. Complex right paraovarian mass, 2.0 cm. Uncertain significance. Followup advised as above. The preliminary findings for this examination were reported by [facility] at 8:47 p.m. on 01/27/2018. There is concurrence of this report with the preliminary findings. Progress Note: On re-eval, pt is afebrile, hemodynamicaly stable. NOn-toxic. Ambulatory in ED with stable gait. ENT: no acute findings. ABd: benign, (-) guarding, (-) rebound. back: (-) CVA tenderness. beta quant today 36, compare to previous visits, expectedly degrading, c/w aborted ectopic . US from 01/27/17 review- c/w beta results. Blood type from previous visit A positive. results review and discussed with pt. Pt advised on course of ds. ref. to F/U with PMD, [facility] in 2-3 days for re-eval. return to ED if any worsening or new changes. Disposition Counseled Patient/Family Regarding: Diagnosis, Need For Followup, Rx Given - Disposition [facility] Disposition: HOME/ ROUTINE Disposition Time: 17:24 Condition: STABLE Additional Instructions: Your beta-quant today is 36 compare to one from 01/27/18-, your results expectedly degrading. Please, Follow up with [facility] now in 2-3 days for re-evaluation as need return to ED if any new changes. Instructions: hCG Test Forms: [facility] (Romanian) - Clinical Impression Clinical Impression: Aborted ectopic
== END 2018-02-06 17:30 | disposition home or self-care (01) ==
LOC: C.ER 15:46
DX: O00.90 Unspecified ectopic pregnancy without intrauterine pregnancy (principal)

== ENCOUNTER 2018-03-23 16:35 | Emergency (ER) | payer OTHER ==
[2018-03-23 16:36] VITALS: BMI 24.4
[2018-03-23] MEDS ORDERED: Sodium Chloride 0.9% 1,000 ML IV ONE (18:56)
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
[2018-03-23 19:27] LABS: BASO % 0.5 % (0.0-2.0); EOS % 0.2 % (0.0-4.0); HEMOGLOBIN 13.1 g/dL (11.0-16.0); LYMPH # 1.7 K/uL (1.0-4.3); LYMPH % 19.7 % (20.0-40.0); MEAN CELL VOLUME 85.7 fL (81.0-99.0); MEAN CORPUSCULAR HEMOGLOBIN 28.1 pg (27.0-31.0); MEAN CORPUSCULAR HGB CONC 32.8 g/dL (33.0-37.0); MEAN PLATELET VOLUME 9.4 fL (7.2-11.7); MONO # 0.7 K/uL (0.0-0.8); MONO % 8.5 % (0.0-10.0); NEUT # 6.3 K/uL (1.8-7.0); NEUT % 71.1 % (50.0-75.0); RBC 4.65 Mil/uL (3.80-5.20); RED CELL DISTRIBUTION WIDTH 13.6 % (11.5-14.5); WHITE BLOOD COUNT 8.8 K/uL (4.8-10.8)
[2018-03-23 19:31] LABS: CALCIUM 8.9 mg/dl (8.6-10.4)
[2018-03-23 19:33] LABS: URINE BILIRUBIN NEGATIVE (NEGATIVE); URINE BLOOD NEGATIVE (NEGATIVE); URINE CLARITY HAZY (Clear); URINE COLOR YELLOW (YELLOW); URINE GLUCOSE (UA) NORMAL (Normal); URINE PROTEIN NEGATIVE (NEGATIVE)
[2018-03-23 19:34] LABS: SQUAMOUS EPITHIAL 7 /hpf (0-5); URINE BACTERIA RARE (<OCC); URINE LEUKOCYTE ESTERASE TRACE Leu/uL (Negative)
[2018-03-23 19:35] LABS: HCG,QUALITATIVE URINE NEGATIVE (NEGATIVE)
[2018-03-23 19:42] LABS: ALB/GLOB RATIO 1.3 (1.0-2.1); ALBUMIN 4.2 g/dL (3.5-5.0); ALT/SGPT 23 U/L (9-52); AST/SGOT 24 U/L (14-36); BLOOD UREA NITROGEN 15 mg/dL (7-17); GFR NON-AFRICAN AMERICAN > 60
[2018-03-23 20:43] LABS: BARBITURATES, UR NEGATIVE (NEGATIVE); BENZODIAZEPINES, UR NEGATIVE (NEGATIVE); OPIATES, UR NEGATIVE (NEGATIVE); PHENCYCLIDINE, UR NEGATIVE (NEGATIVE)
[2018-03-23] MEDS ORDERED: Silver Sulfadiazine 1% Cream (20 gm) TOP STA (21:17)
[2018-03-23] MEDS ORDERED: Silver Sulfadiazine 1% Cream (20 gm) ONE (21:20)
[2018-03-23 21:42] VITALS: BP 107/55; PULSE 68; RESP 20; TEMP 97.6
[2018-03-23 21:45] VITALS: O2SAT 100
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
--- NOTE | 2018-03-25 19:18 | CARD ---
APPROVED REPORT Date of service: 03/23/2018 EKG Measurement Heart [id number] <Conclusion> Normal sinus rhythm with sinus arrhythmia Normal ECG
== END 2018-03-23 21:47 | disposition home or self-care (01) ==
LOC: C.ER 16:35
DX: R03.1 Nonspecific low blood-pressure reading (principal); T22.021A Burn of unspecified degree of right elbow, initial encounter; T21.01XA Burn of unspecified degree of chest wall, initial encounter; T20.07XA Burn of unspecified degree of neck, initial encounter; T20.012A Burn of unspecified degree of left ear [any part, except ear drum], initial encounter; X08.8XXA Exposure to other specified smoke, fire and flames, initial encounter; Y92.9 Unspecified place or not applicable; Z91.419 Personal history of unspecified adult abuse
CPT/HCPCS: 16020; 70450; 72125; 73502; 80053; 80320; 80324; 80345; 80346; 80349; 80353; 80358; 80361; 81001; 83992; 84703; 85025; 93005; 96360; 99285; J7030